=== PATIENT | male | born 1985 | race Caucasian/White ===

== ENCOUNTER 2021-12-19 20:23 | Emergency (ER) | payer SELFPAY ==
[~2021-12-19] VITALS: Ht 167.6 cm; Wt 91.6 kg
[2021-12-19 20:43] VITALS: BP 146/115
--- NOTE | 2021-12-19 20:50 | NUR ---
patient to bed 7
--- NOTE | 2021-12-19 21:11 | NUR ---
Dr. Vick examining patient.
[2021-12-19] MEDS ORDERED: LIDOCAINE MPF 1% 10 MG/ML VIAL INJ ONE (21:15)
--- NOTE | 2021-12-19 21:15 | NUR ---
ER AT BEDSIDE. REPAIR OF LACERATION TO HEAD
--- NOTE | 2021-12-19 21:55 | NUR ---
Patient discharged with v/s stable. Written and verbal after care instructions given and explained. Patient verbalized understanding. Ambulatory with steady gait. All questions addressed prior to discharge. Advised to follow up with PMD.
--- NOTE | 2021-12-19 21:55 | NUR ---
[facility] WAS NOT ADMIN TO PATIENT
--- NOTE | 2021-12-20 05:20 | NUR ---
The patient's care was reviewed and supervised by Swapna Singh RN. Chart checked
== END 2021-12-19 21:55 | disposition home or self-care (01) ==
LOC: MED 20:23
DX: S01.01XA Laceration without foreign body of scalp, initial encounter (principal); W50.0XXA Accidental hit or strike by another person, initial encounter; Y93.89 Activity, other specified; Y92.89 Other specified places as the place of occurrence of the external cause; Y99.8 Other external cause status
CPT/HCPCS: 12001; 99282; J2001